=== PATIENT | female | born 1990 | race Caucasian/White ===

== ENCOUNTER 2019-11-25 00:53 | Emergency (ER) | payer MEDICAID, OTHER ==
[~2019-11-25] VITALS: Ht 154.9 cm; Wt 69.1 kg
[2019-11-25 00:55] VITALS: BP 134/100
--- NOTE | 2019-11-25 00:55 | NUR ---
TO BED # 01 AMBULATORY
[2019-11-25] MEDS: ONDANSETRON 4 MG ODT PO ONE (01:18)
--- NOTE | 2019-11-25 01:18 | NUR ---
PLACED IN BED 1. HERE FOR NAUSEA,VOMITING,RETROSTERNAL CHEST PAIN X 2 DAYS. DENIES FEVER,DIARRHEA,DYSURIA BUT VERBALIZED HAVING URINARY FREQUENCY. HEAR TONE DONE BY LABOR & DELIVERY NURSE AND IS 158 NEATS/MINUTE. MD AWARE. ZOFRAN 4 MG ODT GIVEN ORDERED.
--- NOTE | 2019-11-25 01:20 | NUR ---
JEFFERY CAME BY BEDSIDE TO EVALUATE PT. URINE DIPSTICK DONE BY MARILYN PINON AND SHOWN TO .
[2019-11-25] MEDS ORDERED: LIDOCAINE VISCOUS 2% 20 ML UDC ONE (01:32)
[2019-11-25] MEDS ORDERED: DICYCLOMINE HCL LIQUID 10 MG/5 ML UDC ONE (01:33)
[2019-11-25] MEDS ORDERED: ALUMINUM HYD/MAG/SIMETHICONE 30 ML UDC ONE (01:33)
[2019-11-25] MEDS: DICYCLOMINE HCL LIQUID 20 MG, ALUMINUM HYD/MAG/SIMETHICONE 30 ML, LIDOCAINE VISCOUS 2% ... PO ONE ×3 (01:36)
--- NOTE | 2019-11-25 01:36 | NUR ---
MAALOX 30 ML/VISCOUS LIDOCAINE 10 ML/BENTYL 10 ML PO (G.I.COCKTAIL) GIVEN. VERBALIZED IMPROVEMENT OF NAUSEA.
--- NOTE | 2019-11-25 01:50 | NUR ---
DISCHARGED STABLE AND IMPROVED. PRESCRIPTION,VERBAL AND WRITTEN AFTERCARE INSTRUCTIONS GIVEN. VERBALIZED UNDERSTANDING. LEFT AMBULATORY WITH STABLE GAIT.
[2019-11-25 01:57] VITALS: BP 139/78
== END 2019-11-25 01:50 | disposition home or self-care (01) ==
LOC: MED 00:53
DX: O21.9 Vomiting of pregnancy, unspecified (principal); O26.892 Other specified pregnancy related conditions, second trimester; R10.9 Unspecified abdominal pain; Z3A.32 32 weeks gestation of pregnancy
CPT/HCPCS: 81002; 99283; Q0162

== ENCOUNTER 2020-02-04 14:36 | Inpatient (IN) | payer MEDICAID, SELFPAY ==
[~2020-02-04] VITALS: Ht 154.9 cm; Wt 61.2 kg
[2020-02-04 14:41] VITALS: BP 122/81
--- NOTE | 2020-02-04 14:48 | NUR ---
TRIAGE COMPLETED BY ROSIBEL SANCHEZ
--- NOTE | 2020-02-04 14:49 | NUR ---
C/O RT FLANK PAIN, N/V, SUBJECTIVE FEVER, COUGH X FRIDAY. DENIES SOB. ACTIVELY VOMITING. TOOK IBUPROFEN AND "ANTIBIOTICS MY MOM GAVE ME" AT 12 NOON TODAY. PT REPORTS DIZZINESS AND WEAKNESS. STATES ORANGE URINE. CONNECTED TO BEDSIDE MONITOR. [facility]- VAGINAL DELIVERY DECEMBER 23 2019
--- NOTE | 2020-02-04 15:02 | NUR ---
PT ASSISTED TO COMMODE TO PROVIDE URINE SAMPLE
--- NOTE | 2020-02-04 15:23 | NUR ---
DR. GILES EVALUATING PT AT BEDSIDE.
[2020-02-04] MEDS ORDERED: NACL 0.9% 1,000 ML IV ONE (15:35)
[2020-02-04] MEDS ORDERED: ONDANSETRON 4 MG/2 ML VIAL IVP ONE (15:35)
[2020-02-04 15:37] LABS: APPEARANCE,URINE CLEAR (CLEAR); BILIRUBIN,URINE 2+ (NEGATIVE); BLOOD, URINE 2+ (NEGATIVE); COLOR,URINE YELLOW (YELLOW); LEUKOCYTE ESTERASE ,URINE TRACE (NEGATIVE); NITRITE, URINE NEGATIVE (NEGATIVE); PH,URINE 6.5 (5.0-9.0); UGLUCOSE NEGATIVE (NEGATIVE)
[2020-02-04 15:45] LABS: HEMATOCRIT 33.7 % (36-48); HEMOGLOBIN 11.1 g/dL (12.0-16.0); MEAN CORPUSCULAR HEMOGLOBIN 28 pg (27-31); MEAN CORPUSCULAR HGB CONC 33 g/dL (33-37); MEAN CORPUSCULAR VOLUME 85.6 fL (80-94); PLATELET COUNT (AUTO) 246 K/uL (140-450); RED BLOOD CELL COUNT(AUTO) 3.94 MIL/uL (4.20-5.40); WHITE BLOOD COUNT (AUTO) 22.4 K/uL (4.8-10.8)
[2020-02-04 16:00] LABS: LYMPHOCYTES % (MANUAL) 3 % (20-46); MONOCYTES % (MANUAL) 3 % (5-12)
[2020-02-04 16:00] LABS: RBC,URINE 11-20 (MOD) /HPF (0-5)
--- NOTE | 2020-02-04 16:02 | NUR ---
CXR AT BEDSIDE
[2020-02-04 16:04] LABS: ALBUMIN 3.4 g/dL (3.4-5.0); ANION GAP 15.9 (8-16); CARBON DIOXIDE 25.4 mmol/L (21-32); CREATININE 0.9 mg/dL (0.6-1.3); POTASSIUM 3.3 mmol/L (3.5-5.1); TOTAL BILIRUBIN 0.5 mg/dL (0.0-1.0)
--- NOTE | 2020-02-04 16:42 | NUR ---
Note stewart in ED - 02/04/20 at [email or web address] DEPARTMENT THAT PT IS READY FOR SCAN. PT HAS L AC #20. CONSENT OBTAINED.
--- NOTE | 2020-02-04 16:42 | NUR ---
NOTIFIED CT DEPARTMENT THAT PT IS READY FOR SCAN. PT HAS L AC #20. CONSENT OBTAINED.
--- NOTE | 2020-02-04 16:57 | NUR ---
PT TO CT SCAN VIA W/C
--- NOTE | 2020-02-04 17:13 | NUR ---
PT BACK TO BED [address] SCAN.
[2020-02-04] MEDS ORDERED: cefTRIAXone 1,000 MG VIAL ONE (17:39)
--- NOTE | 2020-02-04 17:45 | NUR ---
PT RESTING IN BED, ALERT, NO SIGNS OF DISTRESS.
[2020-02-04] MEDS ORDERED: HYDROcodone/APAP 7.5/325 MG 1 TAB PO PRN (18:20)
--- NOTE | 2020-02-04 18:38 | NUR ---
SECURITY AT BEDSIDE COUNTING/VERIFYING AMOUNT OF CASTILLO WITH PT
--- NOTE | 2020-02-04 18:38 | NUR ---
PT BRINGING $680 CASTILLO TO TELE 111B AND WANTS TO LEAVE IT IN A SAFE. SECURITY AWARE AND WILL GO TO 111B WITH PBX TO TRANSFER CASTILLO TO A SAFE.
--- NOTE | 2020-02-04 18:40 | NUR ---
RECEIVED PT FROM ER VIA [place] ON ROOM AIR, AAOX4, IV SITES INTACT AND PATENT. ASSISTED TO BED AND ORIENTED TO ROOM. SAFETY MEASURES IN PLACE CALL LIGHT WITHIN REACH. WILL CONTINUE TO MONITOR.
--- NOTE | 2020-02-04 18:40 | NUR ---
MADE FRANCIE SANCHEZ AWARE OF $680 CASTILLO WITH PT AND THAT SECURITY AND PBX WILL COME RETRIEVE THE CASTILLO TO BE PLACED IN A SAFE.
--- NOTE | 2020-02-04 18:40 | NUR ---
Patient will be admitted to care of DR. MCADAMS. Admited to TELE. Will go to room 111B. Belongings list completed. Report to FRANCIE SANCHEZ.
[2020-02-04 18:42] LABS: PROTHROMBIN TIME 11.4 secs (10.8-13.4)
[2020-02-04 18:54] LABS: MAGNESIUM 1.9 mg/dL (1.8-2.4); PHOSPHORUS 2.9 mg/dL (2.5-4.9); THYROID STIMULATING HORMONE 0.37 uIU/mL (0.34-3.74)
--- NOTE | 2020-02-04 19:05 | NUR ---
ENDORSED PT TO NIGHT NURSE. PT IS STABLE.
--- NOTE | 2020-02-04 19:20 | NUR ---
RECEIVED BEDSIDE REPORT FROM AM SHIFT LAURA MARMOLEJO, FOR PT'S CONTINUITY OF CARE. PT IS AAOX4, IS ON ROOM AIR, ON SOLDER CREAM MAKER, HAS LEFT AC 20G WITH NS BOLUS INFUSING, SKIN IS INTACT. PT C/O ESCAMILLA, SLIGHT DIZZINESS, DENIES NAUSEA. EXPLAINED TO PT THE RAILROADER ROUTINE, PT VERBALIZED UNDERSTANDING. SAFETY MEASURES IN PLACE, AND CALL LIGHT IS WITHIN REACH. WILL MONITOR PT THROUGHOUT SHIFT.
[2020-02-04] MEDS: ACETAMINOPHEN 325 MG TAB PO PRN (19:51)
--- NOTE | 2020-02-04 19:51 | NUR ---
PT C/O CHILLS, PT IS SHIVERING, CHECKED ORAL TEMP 100.4, ADMINISTERED PRN PO ACETAMINOPHEN ORDERED. PT TOLERATED IT WELL. ADVISED PT TO TAKE SIPS OF WATER TO AVOID FEELING OF N/V.
[2020-02-04 20:00] VITALS: BP 128/77
[2020-02-04] MEDS: ONDANSETRON 4 MG/2 ML VIAL IVP PRN (20:19)
--- NOTE | 2020-02-04 20:19 | NUR ---
PT C/O N/V, VOMITED ABOUT 30 ML CLEAR, MOSTLY SALIVA IN QUALITY. ADMINISTERED IVP PRN ONDANSETRON. PT MADE COMFORTABLE, COOLING MEASURES IN PLACE, AND CALL LIGHT IS WITHIN REACH. WILL CONTINUE TO MONITOR PT.
[2020-02-04] MEDS ORDERED: MORPHINE SULFATE 2 MG/ML SYR IVP PRN (20:20)
[2020-02-04] MEDS: DOCUSATE SODIUM 100 MG GELCAP PO SCH (21:00)
[2020-02-04] MEDS ORDERED: POTASSIUM CHLORIDE 10 MEQ TABER PO ONE (21:15)
[2020-02-04] MEDS: NACL 0.9% 1,000 ML IV SCH (21:20)
[2020-02-04 22:07] LABS: BARBITURATE, URINE NEGATIVE ng/ml (NEG <=200); BENZODIAZEPINE, URINE NEGATIVE ng/mL (NEG <=200); COCAINE, URINE NEGATIVE ng/mL (NEG <=300)
[2020-02-04 22:08] LABS: CANNABINOID, URINE POSITIVE ng/mL (NEG <=50); OPIATE, URINE NEGATIVE ng/mL (NEG <=2000); PHENCYCLIDINE SCREEN,URINE NEGATIVE ng/mL (NEG <=25)
--- NOTE | 2020-02-04 22:40 | NUR ---
ORAL TEMP RE-CHECKED, 99.6. ADVISED PT TO USE COOLING MEASURES WHEN NEEDED, PT VERBALIZED UNDERSTANDING. PT PROVIDED WITH MEAL, TOLERATING IT WELL, PT EDUCATION GIVEN RE: NUTRITION AND HYDRATION INTAKE, PT VERBALIZED UNDERSTANDING. WILL CONTINUE TO MONITOR PT.
[2020-02-05] VITALS: BP 103/61
--- NOTE | 2020-02-05 01:00 | NUR ---
PT AWAKE, WATCHING TV. RECHECKED TEMP 100, STARTED COOLING MEASURES AGAIN, ADVISED PT TO USE COLD WASHCLOTHS, PT VERBALIZED UNDERSTANDING. PT'S NEEDS MET AT THIS TIME. WILL CONTINUE TO MONITOR.
[2020-02-05] MEDS: ACETAMINOPHEN 325 MG TAB PO PRN ×2 (02:48→15:28)
--- NOTE | 2020-02-05 02:48 | NUR ---
PT C/O CHILLS AND FELT LIKE FEVERISH. ORAL TEMP TAKEN 102.2, ADMINISTERED PO PRN ACETAMINOPHEN ORDERED. MD AWARE OF PT'S TEMP, NO NEW ORDERS. COOLING MEASURES IN PLACE, AND CALL LIGHT IS WITHIN REACH. WILL CONTINUE TO MONITOR PT.
[2020-02-05] MEDS: ONDANSETRON 4 MG/2 ML VIAL IVP PRN (03:43)
--- NOTE | 2020-02-05 03:43 | NUR ---
PT C/O N/V, ADMINISTERED IVP PRN ANTI-EMETIC MEDICATION ORDERED. PT TOLERATED IT WELL. PER PT, VOMITED SOME OF THE CONTENTS FROM DINNER, NO SOUR AFTERTASTE. INSTRUCTED PT TO CONTINUE WITH COOLING MEASURES. PT VERBALIZED UNDERSTANDING. WILL CONTINUE TO MONITOR.
[2020-02-05 04:00] VITALS: BP 114/72
[2020-02-05] MEDS: NACL 0.9% 1,000 ML IV SCH ×3 (04:16→21:09)
--- NOTE | 2020-02-05 05:00 | NUR ---
RE-CHECK ORAL TEMP 98.9, PT ASLEEP, DENIES ANY PAIN AT THIS TIME. WILL CONTINUE TO MONITOR PT.
--- NOTE | 2020-02-05 06:29 | NUR ---
PT ASLEEP WITH NO SIGNS OF DISTRESS. WILL ENDORSE TO AM SHIFT RN FOR PT'S CONTINUITY OF CARE.
--- NOTE | 2020-02-05 07:00 | NUR ---
RECEIVED REPORT FROM GENERAL DOC NURSE YUAN-LAURA. PT RESTING IN BED, AOX4, ON ROOM AIR WITH LEFT AC #20G RUNNING NS @100ML/HR. DISCUSSED PLAN OF CARE AND PT VERBALIZED UNDERSTANDING. NO S/S OF RESPIRATORY DISTRESS OR DISCOMFORT NOTED AT THIS TIME. WILL CONTINUE TO MONITOR.
[2020-02-05 07:43] LABS: BASOPHILS % (AUTO) 0.1 % (0.0-2.0); HEMATOCRIT 28.6 % (36-48); HEMOGLOBIN 9.4 g/dL (12.0-16.0); LYMPHOCYTES # (AUTO) 1.1 K/uL (2.5-16.5); LYMPHOCYTES % (AUTO) 7.4 % (20.5-51.1); MEAN CORPUSCULAR HEMOGLOBIN 28 pg (27-31); MEAN CORPUSCULAR HGB CONC 33 g/dL (33-37); MEAN CORPUSCULAR VOLUME 85.2 fL (80-94); MONOCYTES # (AUTO) 1.4 K/uL (0.8-1.0); MONOCYTES % (AUTO) 9.4 % (1.7-9.3); NEUTROPHILS % (AUTO) 83.1 % (42.2-75.2); PLATELET COUNT (AUTO) 216 K/uL (140-450); RED BLOOD CELL COUNT(AUTO) 3.36 MIL/uL (4.20-5.40); RED CELL DISTRIBUTION WIDTH 15.3 % (11.6-13.7); WHITE BLOOD COUNT (AUTO) 14.5 K/uL (4.8-10.8)
[2020-02-05 08:00] VITALS: BP 101/59
[2020-02-05 08:04] LABS: PHOSPHORUS 2.8 mg/dL (2.5-4.9)
[2020-02-05 08:10] LABS: ANION GAP 15.7 (8-16); CARBON DIOXIDE 22.9 mmol/L (21-32); CREATININE 0.8 mg/dL (0.6-1.3); POTASSIUM 3.6 mmol/L (3.5-5.1)
[2020-02-05 09:01] LABS: CHOL/HDL RATIO 7.1 (1-4.5)
[2020-02-05] MEDS: FAMOTIDINE 20 MG TAB PO SCH (09:47)
[2020-02-05] MEDS: DOCUSATE SODIUM 100 MG GELCAP PO SCH ×2 (09:47→20:08)
--- NOTE | 2020-02-05 09:47 | NUR ---
SCHEDULED MEDICATIONS GIVEN AND TOLERATED WELL. NO S/S OF RESPIRATORY DISTRESS OR DISCOMFORT NOTED AT THIS TIME. WILL CONTINUE TO MONITOR.
--- NOTE | 2020-02-05 12:00 | NUR ---
PT RESTING IN BED. NO S/S OF RESPIRATORY DISTRESS OR DISCOMFORT NOTED AT THIS TIME. WILL CONTINUE TO MONITOR.
[2020-02-05] MEDS ORDERED: NACL 0.9% 1,000 ML IV SCH (13:55)
--- NOTE | 2020-02-05 14:00 | NUR ---
PT RESTING IN BED. NO S/S OF RESPIRATORY DISTRESS OR DISCOMFORT NOTED AT THIS TIME. WILL CONTINUE TO MONITOR.
--- NOTE | 2020-02-05 15:28 | NUR ---
PT C/O NECK PAIN. TYLENOL GIVEN REQUESTED. NO S/S OF RESPIRATORY DISTRESS OR DISCOMFORT NOTED AT THIS TIME. WILL CONTINUE TO MONITOR.
[2020-02-05 16:00] VITALS: BP 110/63
--- NOTE | 2020-02-05 17:48 | NUR ---
SCHEDULED MEDICATION ROCEPHIN GIVEN AND TOLERATED WELL. NO S/S OF RESPIRATORY DISTRESS OR DISCOMFORT NOTED AT THIS TIME. WILL CONTINUE TO MONITOR.
--- NOTE | 2020-02-05 19:10 | NUR ---
RECEIVED PATIENT IN STABLE CONDITION FROM AM SHIFT NURSE FOR CONTINUITY OF CARE. RESPIRATIONS EVEN, UNLABORED. SKIN WARM, DRY. IV SITE NOTED TO LEFT AC 20G PATENT/INTACT, INFUSING FLUIDS WELL. NO C/O PAIN. NO S/S OF ACUTE DISTRESS NOTED. SAFETY PRECAUTIONS IN PLACE. CALL LIGHT WITHIN REACH. WILL CONTINUE TO MONITOR.
--- NOTE | 2020-02-05 19:45 | NUR ---
PATIENT ACCIDENTLY PULLED OUT IV WHILE IN BED. CANNULA INTACT, MINIMAL BLEEDING NOTED. CHANGED IV SITE TO RIGHT HAND 24G USING ASEPTIC TECHNIQUE. FLUSHES WELL. CURRENTLY INFUSING FLUIDS WELL. CALL LIGHT WITHIN REACH. WILL CONTINUE TO MONITOR.
[2020-02-05 20:00] VITALS: BP 122/67
--- NOTE | 2020-02-05 21:00 | NUR ---
PATIENT ON THE PHONE WITH FAMILY. NO C/O PAIN. NO S/S ACUTE DISTRESS. CALL LIGHT WITHIN REACH. WILL CONTINUE TO MONITOR.
--- NOTE | 2020-02-05 23:00 | NUR ---
PATIENT ASLEEP. NO C/O PAIN. NO S/S ACUTE DISTRESS. CALL LIGHT WITHIN REACH. WILL CONTINUE TO MONITOR.
[2020-02-06] VITALS: BP 139/79
[2020-02-06] MEDS: ONDANSETRON 4 MG/2 ML VIAL IVP PRN (00:01)
--- NOTE | 2020-02-06 00:20 | NUR ---
PATIENT VOIDED WELL. 50 ML OF RESIDUAL URINE IN BLADDER PER BLADDER SCANNER. PATIENT IS IN NO DISTRESS. NO C/O PAIN. CALL LIGHT WITHIN REACH. WILL CONTINUE TO MONITOR.
--- NOTE | 2020-02-06 01:43 | NUR ---
PATIENT RESTING COMFORTABLY IN BED. COOLING MEASURES IN PLACE. PATIENT IN NO DISTRESS. NO C/O PAIN. CALL LIGHT WITHIN REACH. WILL CONTINUE TO MONITOR.
--- NOTE | 2020-02-06 02:30 | NUR ---
PATIENT CONTINUES IN STABLE CONDITION. NO C/O PAIN. NO S/S ACUTE DISTRESS. CALL LIGHT WITHIN REACH. WILL CONTINUE TO MONITOR.
[2020-02-06] MEDS: NACL 0.9% 1,000 ML IV SCH ×2 (03:36→04:52)
[2020-02-06 04:00] VITALS: BP 119/71
--- NOTE | 2020-02-06 04:38 | NUR ---
PATIENT AWAKE AND CONTINUES IN STABLE CONDITION. NO C/O PAIN. NO S/S ACUTE DISTRESS. CALL LIGHT WITHIN REACH. WILL CONTINUE TO MONITOR.
[2020-02-06 05:22] LABS: BASOPHILS % (AUTO) 0.3 % (0.0-2.0); EOSINOPHILS % (AUTO) 0.4 % (0.0-4.0); HEMATOCRIT 29.6 % (36-48); HEMOGLOBIN 9.7 g/dL (12.0-16.0); LYMPHOCYTES # (AUTO) 1.8 K/uL (2.5-16.5); LYMPHOCYTES % (AUTO) 22.2 % (20.5-51.1); MEAN CORPUSCULAR HEMOGLOBIN 28 pg (27-31); MEAN CORPUSCULAR HGB CONC 33 g/dL (33-37); MONOCYTES # (AUTO) 0.7 K/uL (0.8-1.0); MONOCYTES % (AUTO) 8.4 % (1.7-9.3); NEUTROPHILS # (AUTO) 5.7 K/uL (1.8-7.7); NEUTROPHILS % (AUTO) 68.7 % (42.2-75.2); PLATELET COUNT (AUTO) 239 K/uL (140-450); RED BLOOD CELL COUNT(AUTO) 3.44 MIL/uL (4.20-5.40); RED CELL DISTRIBUTION WIDTH 15.8 % (11.6-13.7); WHITE BLOOD COUNT (AUTO) 8.3 K/uL (4.8-10.8)
[2020-02-06 05:49] LABS: ANION GAP 10.7 (8-16); CARBON DIOXIDE 25.4 mmol/L (21-32); CREATININE 0.7 mg/dL (0.6-1.3); POTASSIUM 4.1 mmol/L (3.5-5.1)
--- NOTE | 2020-02-06 06:18 | NUR ---
PATIENT IN STABLE CONDITION. NO C/O PAIN. NO S/S ACUTE DISTRESS. CALL LIGHT WITHIN REACH. WILL CONTINUE TO MONITOR.
--- NOTE | 2020-02-06 06:54 | NUR ---
PATIENT HAS BEEN SCREENED AND CATEGORIZED MODERATE NUTRITION RISK. PATIENT WILL BE SEEN WITHIN 3-5 DAYS OF ADMISSION. 02/07/20-02/09/20 SD MENDEZ MS, RDN
--- NOTE | 2020-02-06 07:15 | NUR ---
RECEIVED REPORT FROM MAINFRAME PROGRAMMER ANALYST NURSE, FOR CONTINUITY OF CARE. PT IS LYING IN BED, AAOX4. RESPIRATIONS ARE EVEN AND UNLABORED, BREATHING TO RA. R HAND 24G IV, IS PATENT AND INTACT, WITH FLUIDS RUNNING ORDERED. REVIEWED PLAN OF CARE WITH PATIENT. TELE MONITOR ATTACHED. SAFETY MEASURES IN PLACE; CALL LIGHT WITHIN REACH, BED IN LOW POSITION. WILL CONTINUE TO MONITOR.
[2020-02-06 07:35] LABS: MAGNESIUM 1.6 mg/dL (1.8-2.4); PHOSPHORUS 3.3 mg/dL (2.5-4.9)
[2020-02-06 08:00] VITALS: BP 109/60
[2020-02-06] MEDS ORDERED: LEVO750T2 PO (08:15)
[2020-02-06] MEDS ORDERED: LACT-81 PO (08:15)
[2020-02-06] MEDS ORDERED: ONDA4TAB PO (08:15)
[2020-02-06] MEDS ORDERED: MAGNESIUM OXIDE 400 MG TAB PO SCH (09:00)
[2020-02-06] MEDS: FAMOTIDINE 20 MG TAB PO SCH (09:50)
--- NOTE | 2020-02-06 09:50 | NUR ---
SCHEDULED MEDS GIVEN. MEDICATION EDUCTION PROVIDED, WITH PT VERBALIZING UNDERSTANDING. PT TOLERATED PO MEDS WELL. NO DISTRESS NOTED. TELE MONITOR ATTACHED. SAFETY MEASURES IN PLACE. WILL CONTINUE TO MONITOR.
[2020-02-06] MEDS: DOCUSATE SODIUM 100 MG GELCAP PO SCH (09:52)
--- NOTE | 2020-02-06 12:20 | NUR ---
DISCHARGE INSTRUCTIONS GIVEN, WITH PT VERBALIZING UNDERSTANDING. ALL DISCHARGE PAPERWORK SIGNED. DISCHARGE PACKET PROVIDED. ARM BANDS, TELE MONITOR, AND IV REMOVED, WITH IV CATHETER INTACT. ALL BELONGINGS ARE IN THE PT'S POSSESSION. PT STATED THAT HER IS HERE TO PICK HER UP AND TAKE HER HOME; PT ESCORTED OUT TO THE LOBBY, WEARING A MASK. PT IS IN STABLE CONDITION.
== END 2020-02-06 12:20 | disposition home or self-care (01) | DRG 720 ==
LOC: EEVIPCON 14:36 → MED 14:36 → MTU 17:43
PROVIDERS: ADMIT General Practice; ATTEND General Practice
DX: A41.9 Sepsis, unspecified organism (principal); K76.0 Fatty (change of) liver, not elsewhere classified; E83.42 Hypomagnesemia; N12 Tubulo-interstitial nephritis, not specified as acute or chronic; E86.0 Dehydration; E87.6 Hypokalemia; N28.1 Cyst of kidney, acquired; N83.202 Unspecified ovarian cyst, left side; F12.90 Cannabis use, unspecified, uncomplicated
CPT/HCPCS: 36415; 71045; 80048; 80053; 80305; 81001; 83036; 83605; 83690; 83735; 83880; 84100; 84443; 84484; 85025; 85610; 85730; 87040; 87081; 87086; 93005; 96361; 96365; 96375; 99285; J0696; J2405; J7030; J7060; Q0092; Q9967